=== PATIENT | female | born 1940 | race Caucasian/White ===

== ENCOUNTER 2021-05-03 20:00 | Inpatient (IN) | payer MEDICARE, OTHER ==
[2021-05-03 20:47] LABS: ALT (SGPT) 29 U/L (8-55); AST (SGOT) 64 U/L (5-34); Albumin 3.3 g/dL (3.4-4.8); Alkaline Phosphatase 57 U/L (40-110); Anion Gap 12 mmol/L (10-20); BUN (Urea Nitrogen) 18 mg/dL (9.8-20.1); Bilirubin, Total 0.4 mg/dL (0.2-1.2); Calc. Creatinine Clearance 58 mL/min (70-130); Calcium 8.7 mg/dL (7.8-10.44); Carbon Dioxide 28 mmol/L (23-31); Chloride 107 mmol/L (98-107); Globulin 2.6 g/dL (2.4-3.5); Glucose 164 mg/dL (83-110); Magnesium 1.9 mg/dL (1.6-2.6); Potassium 4.7 mmol/L (3.5-5.1); Protein, Total 5.9 g/dL (5.8-8.1); Sodium 142 mmol/L (136-145)
[2021-05-03 21:16] LABS: #Eosinphils 0.1 10x3/uL (0.0-0.5); #Monocytes 0.6 10x3/uL (0.0-1.1); #Neutrophils 6.7 10x3/uL (1.5-8.4); %Basophils 0.4 % (0.0-2.0); %Eosinophils 0.6 % (0.0-6.0); %Lymphocytes 21.9 % (18.0-47.0); %Monocytes 5.8 % (0.0-10.0); %Neutrophils 70.9 % (40.0-75.0); Hemoglobin 12.7 g/dL (12.0-15.5); Mean Corpuscular HGB CONC 30.9 g/dL (32.0-36.0); Mean Corpuscular Hemoglobin 29.1 pg (27.0-33.0); Mean Corpuscular Volume 94.1 fl (81.6-98.3); Platelet Count 96 10x3/uL (150-450); RBC Distribution Width 12.8 % (11.5-14.5); Red Blood Cell (RBC) Count 4.37 10x6/uL (3.90-5.03); White Blood Cell (WBC) Count 9.5 10x3/uL (3.5-10.5)
[2021-05-03] MEDS ORDERED: Sodium Chloride 0.9% 200 ML ONE (21:56)
[2021-05-03] MEDS ORDERED: Aspirin 325 mg Enteric Coated Tablet PO SCH (22:00)
[2021-05-03] MEDS ORDERED: Metoprolol Tartrate 25 MG TAB PO SCH (22:00)
[2021-05-03] MEDS ORDERED: cefTRIAXone\\ROCEPHIN 2 GM in Sodium Chloride 0.9% 100 ML IVPB SCH (22:00)
[2021-05-03] MEDS ORDERED: Enoxaparin Sodium 80 MG/0.8 ML SYRINGE SC SCH (22:00)
[2021-05-03] MEDS: Sodium Chloride 0.9% 1,000 ML IV SCH (22:01)
[2021-05-03] MEDS: Azithromycin 500 MG in Sodium Chloride 0.9% 250 ML 250 ML IVPB SCH (22:02)
[2021-05-03 22:10] LABS: ALT (SGPT) 29 U/L (8-55); AST (SGOT) 70 U/L (5-34); Albumin 3.2 g/dL (3.4-4.8); Alkaline Phosphatase 56 U/L (40-110); Anion Gap 11 mmol/L (10-20); BUN (Urea Nitrogen) 19 mg/dL (9.8-20.1); Bilirubin, Total 0.3 mg/dL (0.2-1.2); Calc. Creatinine Clearance 61 mL/min (70-130); Calcium 8.6 mg/dL (7.8-10.44); Carbon Dioxide 26 mmol/L (23-31); Chloride 107 mmol/L (98-107); Globulin 2.8 g/dL (2.4-3.5); Glucose 143 mg/dL (83-110); Magnesium 1.9 mg/dL (1.6-2.6); Potassium 4.4 mmol/L (3.5-5.1); Sodium 140 mmol/L (136-145)
[2021-05-03] MEDS ORDERED: Zolpidem Tartrate 5 MG TAB PO SCH (23:15)
[2021-05-04 01:19] LABS: Troponin I 3.589 ng/mL (< 0.028)
[2021-05-04] MEDS: Nitroglycerin 2% Ointment 1 INCH/1 GM Packet TOP SCH ×3 (01:49→17:08)
[2021-05-04] MEDS ORDERED: Loratadine 10 MG TAB PO PRN (03:14)
[2021-05-04] MEDS: Sodium Chloride 0.9% 1,000 ML IV SCH ×2 (05:36→12:25)
[2021-05-04 05:39] LABS: #Eosinphils 0.1 10x3/uL (0.0-0.5); #Monocytes 0.6 10x3/uL (0.0-1.1); #Neutrophils 5.5 10x3/uL (1.5-8.4); %Basophils 0.3 % (0.0-2.0); %Lymphocytes 28.9 % (18.0-47.0); %Monocytes 6.3 % (0.0-10.0); %Neutrophils 63.3 % (40.0-75.0); Hemoglobin 12.3 g/dL (12.0-15.5); Mean Corpuscular HGB CONC 31.6 g/dL (32.0-36.0); Mean Corpuscular Hemoglobin 29.4 pg (27.0-33.0); Mean Corpuscular Volume 93.1 fl (81.6-98.3); Mean Platelet Volume 11.8 fl (7.4-10.4); Platelet Count 99 10x3/uL (150-450); RBC Distribution Width 13.1 % (11.5-14.5); Red Blood Cell (RBC) Count 4.18 10x6/uL (3.90-5.03); White Blood Cell (WBC) Count 8.8 10x3/uL (3.5-10.5)
[2021-05-04 05:49] LABS: Anion Gap 12 mmol/L (10-20); BUN (Urea Nitrogen) 18 mg/dL (9.8-20.1); Calc. Creatinine Clearance 64 mL/min (70-130); Calcium 8.2 mg/dL (7.8-10.44); Carbon Dioxide 25 mmol/L (23-31); Chloride 110 mmol/L (98-107); Glucose 97 mg/dL (83-110); Potassium 4.4 mmol/L (3.5-5.1); Sodium 143 mmol/L (136-145)
[2021-05-04 06:15] LABS: Troponin I 3.589 ng/mL (< 0.028)
[2021-05-04] MEDS: Enoxaparin Sodium 80 MG/0.8 ML SYRINGE SC SCH ×2 (07:51→20:18)
[2021-05-04] MEDS: Multivit, Therapeutic 1 TAB PO SCH (07:51)
[2021-05-04] MEDS: Ascorbic Acid 500 mg Chewable Tablet PO SCH (07:51)
[2021-05-04] MEDS: Cholecalciferol 1,000 UNITS (25 MCG) TAB PO SCH (07:51)
[2021-05-04] MEDS: Aspirin 81 mg Enteric Coated Tablet PO SCH (07:52)
[2021-05-04] MEDS: Fish Oil 1,000 MG CAP PO SCH (07:52)
[2021-05-04] MEDS: Potassium Chloride 10 MEQ TAB PO SCH (07:52)
[2021-05-04] MEDS ORDERED: Venlafaxine HCl XR 75 MG CAP PO SCH (09:00)
[2021-05-04] MEDS ORDERED: Lisinopril 20 MG TAB PO SCH (09:00)
[2021-05-04] MEDS ORDERED: Rosuvastatin 20 MG TAB PO SCH (09:00)
[2021-05-04] MEDS ORDERED: Aspirin 81 mg Enteric Coated Tablet PO SCH (09:00)
[2021-05-04] MEDS ORDERED: Furosemide 40 MG TAB PO SCH (09:00)
[2021-05-04] MEDS ORDERED: BUPRENORPHINE TD SCH (09:00)
[2021-05-04] MEDS ORDERED: Metoprolol Tartrate 25 MG TAB PO SCH (09:00)
[2021-05-04] MEDS: Acetaminophen 325 MG TAB PO PRN (17:13)
[2021-05-04] MEDS: Gabapentin 300 MG CAP PO SCH (20:30)
[2021-05-04] MEDS ORDERED: Zolpidem Tartrate 5 MG TAB PO SCH (21:00)
[2021-05-04] MEDS ORDERED: Zolpidem Tartrate 5 MG TAB PO PRN (21:00)
[2021-05-04] MEDS ORDERED: Dexamethasone 10 MG in Sodium Chloride 0.9% 50 ML IVPB SCH (21:15)
[2021-05-04] MEDS ORDERED: Lorazepam 2 MG/ML VIAL ONE (22:00)
[2021-05-04 22:11] LABS: ALV-art Gradient -43.065 mmHg (0-20); Actual Bicarbonate (HCO3a) 17.5 mEq/L (22-28); Base Excess (BEa) -19.8 mEq/L (-2.0 to +3.0); CO2 Tension 120.9 mmHg (35.0-45.0); Calcium, Ionized (arterial) 1.22 mmol/L (1.12-1.30); Carboxyhemoglobin (COHb) 0.5 gm% (0.0-3.0); Hemoglobin (Hb) 14.1 g/dL (12.0-16.0); O2 Tension (PaO2), arterial 120.1 mmHg (> 70.0); Potassium - ABG Lab 4.2 mmol/L (3.70-5.30); Puncture Site RRA; pH, Arterial 6.78 (7.35-7.45)
[2021-05-04] MEDS ORDERED: Piperacillin/Tazobactam 3.375 GM in Sodium Chloride 0.9% 100 ML IVPB SCH (22:30)
[2021-05-04 22:49] LABS: Hemoglobin 13.9 g/dL (12.0-15.5); Mean Corpuscular HGB CONC 29.9 g/dL (32.0-36.0); Mean Corpuscular Hemoglobin 29.3 pg (27.0-33.0); Mean Corpuscular Volume 98.1 fl (81.6-98.3); Mean Platelet Volume 12.3 fl (7.4-10.4); Platelet Count 136 10x3/uL (150-450); RBC Distribution Width 12.8 % (11.5-14.5); Red Blood Cell (RBC) Count 4.74 10x6/uL (3.90-5.03); White Blood Cell (WBC) Count 23.7 10x3/uL (3.5-10.5)
[2021-05-04 22:53] LABS: ALT (SGPT) 48 U/L (8-55); AST (SGOT) 59 U/L (5-34); Albumin 3.5 g/dL (3.4-4.8); Alkaline Phosphatase 81 U/L (40-110); Anion Gap 20 mmol/L (10-20); BUN (Urea Nitrogen) 16 mg/dL (9.8-20.1); Bilirubin, Total 0.3 mg/dL (0.2-1.2); CK (CPK) 142 U/L (29-168); Calc. Creatinine Clearance 47 mL/min (70-130); Calcium 8.6 mg/dL (7.8-10.44); Carbon Dioxide 18 mmol/L (23-31); Chloride 108 mmol/L (98-107); Globulin 2.7 g/dL (2.4-3.5); Glucose 177 mg/dL (83-110); Protein, Total 6.2 g/dL (5.8-8.1); Sodium 142 mmol/L (136-145)
[2021-05-04] MEDS ORDERED: levETIRAcetam in NS 1,000 MG in Premix Bag 1 BAG IVPB SCH (23:00)
[2021-05-04 23:39] LABS: MDiff Complete? YES; Manual Diff?? YES
[2021-05-04 23:43] LABS: Band 1 % (5-11); Eosinophils 5 % (0-10); Lymphocytes 21 % (21-51); Monocytes 2 % (0-10); Neutrophil 52 % (42-75); Reactive Lymphocytes 18 % (0-10)
[2021-05-04 23:44] LABS: Platelet Morphology Comment Appears Adequate
[2021-05-04 23:45] LABS: Giant Platelets SLIGHT; Large Platelets SLIGHT
[2021-05-04 23:46] LABS: Crenated RBC SLIGHT = 1-5 cells (100X) (None Seen)
[2021-05-05] MEDS: Sodium Bicarbonate 75 MEQ, Admixture Fee 1 EACH in Dextrose 5% in Water 500 ML IV SCH ×2 (00:01→16:25)
[2021-05-05] MEDS ORDERED: Dexamethasone 10 MG in Sodium Chloride 0.9% 50 ML IVPB SCH ×2 (01:00→09:00)
[2021-05-05] MEDS ORDERED: Vasopressin 20 UNIT, Admixture Fee 1 EACH in Sodium Chloride 0.9% 50 ML IV SCH (01:00)
[2021-05-05 01:16] VITALS: TEMP 97.8
[2021-05-05 01:39] LABS: ALV-art Gradient 595.325 mmHg (0-20); Actual Bicarbonate (HCO3a) 17.3 mEq/L (22-28); Base Excess (BEa) -11.6 mEq/L (-2.0 to +3.0); CO2 Tension 51.5 mmHg (35.0-45.0); Calcium, Ionized (arterial) 1.13 mmol/L (1.12-1.30); Carboxyhemoglobin (COHb) 0.1 gm% (0.0-3.0); Hemoglobin (Hb) 13.6 g/dL (12.0-16.0); O2 Tension (PaO2), arterial 53.3 mmHg (> 70.0); Potassium - ABG Lab 4.5 mmol/L (3.70-5.30); Puncture Site RRA; pH, Arterial 7.15 (7.35-7.45)
[2021-05-05] MEDS ORDERED: levETIRAcetam in NS 1,000 MG in Premix Bag 1 BAG IVPB SCH (03:30)
[2021-05-05] MEDS: Nitroglycerin 2% Ointment 1 INCH/1 GM Packet TOP SCH ×2 (03:57→10:07)
[2021-05-05] MEDS: Azithromycin 500 MG in Sodium Chloride 0.9% 250 ML 250 ML IVPB SCH ×2 (03:57→23:32)
[2021-05-05] MEDS: Dexamethasone 4 mg/ml Vial SLOW IVP SCH ×2 (03:57→13:21)
[2021-05-05 03:59] LABS: CRP (Inflammatory) 7.41 mg/dL (= or < 0.5); Magnesium 1.6 mg/dL (1.6-2.6)
[2021-05-05] MEDS ORDERED: Piperacillin/Tazobactam 3.375 GM in Sodium Chloride 0.9% 100 ML IVPB SCH (04:00)
[2021-05-05 04:05] LABS: Troponin I 2.331 ng/mL (< 0.028)
[2021-05-05 04:16] LABS: ALT (SGPT) 74 U/L (8-55); AST (SGOT) 98 U/L (5-34); Albumin 2.9 g/dL (3.4-4.8); Alkaline Phosphatase 84 U/L (40-110); Anion Gap 14 mmol/L (10-20); BUN (Urea Nitrogen) 19 mg/dL (9.8-20.1); Bilirubin, Total 0.3 mg/dL (0.2-1.2); Calc. Creatinine Clearance 47 mL/min (70-130); Calcium 7.5 mg/dL (7.8-10.44); Carbon Dioxide 26 mmol/L (23-31); Chloride 107 mmol/L (98-107); Globulin 1.9 g/dL (2.4-3.5); Glucose 300 mg/dL (83-110); Potassium 3.8 mmol/L (3.5-5.1); Protein, Total 4.8 g/dL (5.8-8.1); Sodium 143 mmol/L (136-145)
[2021-05-05 04:32] LABS: Hemoglobin 12.1 g/dL (12.0-15.5); Mean Corpuscular HGB CONC 31.1 g/dL (32.0-36.0); Mean Corpuscular Hemoglobin 28.6 pg (27.0-33.0); Mean Platelet Volume 12.7 fl (7.4-10.4); Platelet Count 142 10x3/uL (150-450); RBC Distribution Width 12.8 % (11.5-14.5); Red Blood Cell (RBC) Count 4.23 10x6/uL (3.90-5.03); White Blood Cell (WBC) Count 19.8 10x3/uL (3.5-10.5)
[2021-05-05 04:48] LABS: MDiff Complete? YES
[2021-05-05 04:51] LABS: Band 3 % (5-11); Lymphocytes 15 % (21-51); Monocytes 9 % (0-10); Neutrophil 73 % (42-75)
[2021-05-05 04:53] LABS: Platelet Morphology Comment Appears Adequate; RBC Morphology Normal
[2021-05-05 05:05] LABS: ALV-art Gradient 311.025 mmHg (0-20); Actual Bicarbonate (HCO3a) 26.8 mEq/L (22-28); Base Excess (BEa) 1.7 mEq/L (-2.0 to +3.0); CO2 Tension 43.9 mmHg (35.0-45.0); Calcium, Ionized (arterial) 1.09 mmol/L (1.12-1.30); Carboxyhemoglobin (COHb) 0.4 gm% (0.0-3.0); Hemoglobin (Hb) 12.9 g/dL (12.0-16.0); O2 Tension (PaO2), arterial 61.9 mmHg (> 70.0); Potassium - ABG Lab 3.7 mmol/L (3.70-5.30); Puncture Site Arterial Line
[2021-05-05] MEDS ORDERED: levETIRAcetam 500 MG in Sodium Chloride 0.9% 100 ML IVPB SCH (09:00)
[2021-05-05] MEDS ORDERED: BARICITINIB 2 MG TAB PO SCH (09:15)
[2021-05-05] MEDS: Piperacillin/Tazobactam 3.375 GM in Sodium Chloride 0.9% 100 ML IVPB SCH ×2 (09:47→15:33)
[2021-05-05] MEDS: Cholecalciferol 1,000 UNITS (25 MCG) TAB PO SCH (09:52)
[2021-05-05] MEDS: Zinc Sulfate 220 MG CAP PO SCH (09:52)
[2021-05-05] MEDS: Ascorbic Acid 500 mg Chewable Tablet PO SCH (09:52)
[2021-05-05] MEDS: Aspirin 81 mg Enteric Coated Tablet PO SCH (09:53)
[2021-05-05] MEDS: Norepinephrine 8 MG/0.9% NS 250 ML IVPB PRN (09:53)
[2021-05-05] MEDS: Fish Oil 1,000 MG CAP PO SCH (09:54)
[2021-05-05] MEDS: Propofol 1,000 MG/100 ML VIAL IV PRN ×2 (09:58→16:05)
[2021-05-05] MEDS ORDERED: Dextrose 5% in Water 1,000 ML IV PRN (09:59)
[2021-05-05] MEDS ORDERED: Dextrose 50% Abboject 50 ML SYRINGE SLOW IVP PRN (09:59)
[2021-05-05] MEDS: Potassium Chloride 10 MEQ TAB PO SCH (10:04)
[2021-05-05] MEDS: Pantoprazole 40 MG VIAL IVP SCH (10:04)
[2021-05-05] MEDS: Multivit, Therapeutic 1 TAB PO SCH (10:08)
[2021-05-05] MEDS ORDERED: levETIRAcetam 500 MG/5 ML VIAL ONE (14:05)
[2021-05-05] MEDS: fentaNYL Citrate-0.9 % NaCl/PF 100 ML IVPB SCH (14:10)
[2021-05-05] MEDS: levETIRAcetam 500 MG in Sodium Chloride 0.9% 100 ML IVPB SCH (14:20)
[2021-05-05] MEDS: HumaLOG 300 UNITS/3 ML VIAL SC PRN (16:30)
[2021-05-05] MEDS: Gabapentin 300 MG CAP PO SCH (20:29)
[2021-05-06] MEDS: Sodium Bicarbonate 75 MEQ, Admixture Fee 1 EACH in Dextrose 5% in Water 500 ML IV SCH (00:14)
[2021-05-06] MEDS: Dexamethasone 4 mg/ml Vial SLOW IVP SCH ×2 (03:29→13:06)
[2021-05-06] MEDS: Piperacillin/Tazobactam 3.375 GM in Sodium Chloride 0.9% 100 ML IVPB SCH ×3 (03:29→15:46)
[2021-05-06] MEDS: levETIRAcetam 500 MG in Sodium Chloride 0.9% 100 ML IVPB SCH ×2 (03:29→15:58)
[2021-05-06 04:03] LABS: Actual Bicarbonate (HCO3a) 32.3 mEq/L (22-28); Base Excess (BEa) 9.3 mEq/L (-2.0 to +3.0); CO2 Tension 37.8 mmHg (35.0-45.0); Calcium, Ionized (arterial) 1.01 mmol/L (1.12-1.30); Carboxyhemoglobin (COHb) 0.3 gm% (0.0-3.0); Hemoglobin (Hb) 10.9 g/dL (12.0-16.0); Potassium - ABG Lab 3.4 mmol/L (3.70-5.30); Puncture Site Arterial Line; pH, Arterial 7.55 (7.35-7.45)
[2021-05-06 04:21] LABS: Hemoglobin 10.1 g/dL (12.0-15.5); Mean Corpuscular HGB CONC 32.5 g/dL (32.0-36.0); Mean Corpuscular Volume 89.4 fl (81.6-98.3); Mean Platelet Volume 12.3 fl (7.4-10.4); Platelet Count 150 10x3/uL (150-450); RBC Distribution Width 12.7 % (11.5-14.5); Red Blood Cell (RBC) Count 3.48 10x6/uL (3.90-5.03); White Blood Cell (WBC) Count 20.7 10x3/uL (3.5-10.5)
[2021-05-06 04:29] LABS: ALT (SGPT) 44 U/L (8-55); AST (SGOT) 35 U/L (5-34); Albumin 2.5 g/dL (3.4-4.8); Alkaline Phosphatase 61 U/L (40-110); Anion Gap 12 mmol/L (10-20); BUN (Urea Nitrogen) 18 mg/dL (9.8-20.1); Bilirubin, Direct 0.2 mg/dL (0.1-0.3); Bilirubin, Total 0.3 mg/dL (0.2-1.2); Calc. Creatinine Clearance 50 mL/min (70-130); Calcium 7.4 mg/dL (7.8-10.44); Carbon Dioxide 33 mmol/L (23-31); Chloride 100 mmol/L (98-107); Glucose 175 mg/dL (83-110); Potassium 3.3 mmol/L (3.5-5.1); Protein, Total 4.5 g/dL (5.8-8.1); Sodium 142 mmol/L (136-145)
[2021-05-06] MEDS: Norepinephrine 8 MG/0.9% NS 250 ML IVPB PRN (06:10)
[2021-05-06] MEDS ORDERED: Potassium Chloride 20 MEQ TAB PO SCH (06:15)
[2021-05-06 06:25] LABS: MDiff Complete? YES
[2021-05-06 06:27] LABS: Band 1 % (5-11); Lymphocytes 29 % (21-51); Monocytes 6 % (0-10); Neutrophil 61 % (42-75); Reactive Lymphocytes 3 % (0-10)
[2021-05-06 06:29] LABS: Platelet Morphology Comment Appears Adequate; RBC Morphology Normal
[2021-05-06] MEDS: Propofol 1,000 MG/100 ML VIAL IV PRN (07:44)
[2021-05-06] MEDS: fentaNYL Citrate-0.9 % NaCl/PF 100 ML IVPB SCH (07:47)
[2021-05-06] MEDS: Pantoprazole 40 MG VIAL IVP SCH (09:29)
[2021-05-06] MEDS: Acetaminophen 325 MG TAB PO PRN (09:29)
[2021-05-06] MEDS: BARICITINIB 2 MG TAB PO SCH (09:30)
[2021-05-06] MEDS: Cholecalciferol 1,000 UNITS (25 MCG) TAB PO SCH (09:30)
[2021-05-06] MEDS: Multivit, Therapeutic 1 TAB PO SCH (09:30)
[2021-05-06] MEDS: Zinc Sulfate 220 MG CAP PO SCH (09:30)
[2021-05-06] MEDS: Ascorbic Acid 500 mg Chewable Tablet PO SCH (09:31)
[2021-05-06] MEDS: Aspirin 81 mg Enteric Coated Tablet PO SCH (09:36)
[2021-05-06] MEDS ORDERED: Sodium Chloride 0.9% 100 ML ONE (16:00)
[2021-05-06] MEDS: Gabapentin 300 MG CAP PO SCH (21:37)
[2021-05-07] MEDS: Piperacillin/Tazobactam 3.375 GM in Sodium Chloride 0.9% 100 ML IVPB SCH ×4 (00:20→23:09)
[2021-05-07] MEDS: Propofol 1,000 MG/100 ML VIAL IV PRN ×4 (00:20→20:02)
[2021-05-07] MEDS: levETIRAcetam 500 MG in Sodium Chloride 0.9% 100 ML IVPB SCH ×2 (02:29→14:43)
[2021-05-07] MEDS: Dexamethasone 4 mg/ml Vial SLOW IVP SCH ×2 (02:29→14:41)
[2021-05-07 04:12] LABS: Mean Corpuscular HGB CONC 31.6 g/dL (32.0-36.0); Mean Corpuscular Hemoglobin 28.8 pg (27.0-33.0); Mean Corpuscular Volume 91.3 fl (81.6-98.3); Mean Platelet Volume 11.5 fl (7.4-10.4); Platelet Count 179 10x3/uL (150-450); RBC Distribution Width 12.9 % (11.5-14.5); Red Blood Cell (RBC) Count 3.12 10x6/uL (3.90-5.03); White Blood Cell (WBC) Count 28.1 10x3/uL (3.5-10.5)
[2021-05-07 04:30] LABS: ALT (SGPT) 39 U/L (8-55); AST (SGOT) 32 U/L (5-34); Albumin 2.5 g/dL (3.4-4.8); Alkaline Phosphatase 55 U/L (40-110); Anion Gap 15 mmol/L (10-20); BUN (Urea Nitrogen) 28 mg/dL (9.8-20.1); Bilirubin, Total 0.3 mg/dL (0.2-1.2); Calc. Creatinine Clearance 62 mL/min (70-130); Calcium 7.5 mg/dL (7.8-10.44); Carbon Dioxide 30 mmol/L (23-31); Chloride 102 mmol/L (98-107); Globulin 2.1 g/dL (2.4-3.5); Glucose 115 mg/dL (83-110); Protein, Total 4.6 g/dL (5.8-8.1); Sodium 143 mmol/L (136-145)
[2021-05-07 05:08] LABS: MDiff Complete? YES
[2021-05-07 05:11] LABS: Lymphocytes 31 % (21-51); Monocytes 5 % (0-10); Neutrophil 56 % (42-75); Reactive Lymphocytes 8 % (0-10)
[2021-05-07 05:12] LABS: Platelet Morphology Comment Appears Adequate; RBC Morphology Normal
[2021-05-07 06:20] LABS: D-Dimer Test 3.17 mg/L FEU (0.19-0.50); PTT 24.7 sec (22.0-33.0); Prothrombin Time 11.3 sec (9.5-12.1)
[2021-05-07] MEDS: Aspirin Chewable 81 MG TAB PO SCH (09:44)
[2021-05-07] MEDS: Ascorbic Acid 500 mg Chewable Tablet PO SCH (09:44)
[2021-05-07] MEDS: Pantoprazole 40 MG VIAL IVP SCH (09:45)
[2021-05-07] MEDS: Zinc Sulfate 220 MG CAP PO SCH (09:45)
[2021-05-07] MEDS: Multivit, Therapeutic 1 TAB PO SCH (09:45)
[2021-05-07] MEDS: BARICITINIB 2 MG TAB PO SCH (09:45)
[2021-05-07] MEDS: Cholecalciferol 1,000 UNITS (25 MCG) TAB PO SCH (09:45)
[2021-05-07] MEDS: fentaNYL Citrate-0.9 % NaCl/PF 100 ML IVPB SCH (10:24)
[2021-05-07 10:31] LABS: ALV-art Gradient 407.075 mmHg (0-20); Actual Bicarbonate (HCO3a) 26.1 mEq/L (22-28); Base Excess (BEa) 3.6 mEq/L (-2.0 to +3.0); CO2 Tension 30.9 mmHg (35.0-45.0); Calcium, Ionized (arterial) 0.93 mmol/L (1.12-1.30); Carboxyhemoglobin (COHb) 0.1 gm% (0.0-3.0); Hemoglobin (Hb) 7.9 g/dL (12.0-16.0); O2 Tension (PaO2), arterial 53.4 mmHg (> 70.0); Puncture Site Arterial Line; pH, Arterial 7.55 (7.35-7.45)
[2021-05-07] MEDS: Norepinephrine 8 MG/0.9% NS 250 ML IVPB PRN (14:43)
[2021-05-07] MEDS: Gabapentin 300 MG CAP PO SCH (20:02)
[2021-05-07] MEDS: HumaLOG 300 UNITS/3 ML VIAL SC PRN (20:17)
[2021-05-08] MEDS: Dexamethasone 4 mg/ml Vial SLOW IVP SCH ×2 (02:39→14:34)
[2021-05-08] MEDS: levETIRAcetam 500 MG in Sodium Chloride 0.9% 100 ML IVPB SCH ×2 (02:39→14:35)
[2021-05-08] MEDS: Propofol 1,000 MG/100 ML VIAL IV PRN ×4 (02:39→22:08)
[2021-05-08 04:30] LABS: Base Excess (BEa) 6.4 mEq/L (-2.0 to +3.0); CO2 Tension 39.5 mmHg (35.0-45.0); Calcium, Ionized (arterial) 1.03 mmol/L (1.12-1.30); Carboxyhemoglobin (COHb) 0.3 gm% (0.0-3.0); Hemoglobin (Hb) 10.1 g/dL (12.0-16.0); O2 Tension (PaO2), arterial 104.8 mmHg (> 70.0); Potassium - ABG Lab 3.6 mmol/L (3.70-5.30); Puncture Site Arterial Line
[2021-05-08 04:31] LABS: Hemoglobin 8.8 g/dL (12.0-15.5); Mean Corpuscular HGB CONC 31.2 g/dL (32.0-36.0); Mean Corpuscular Hemoglobin 28.9 pg (27.0-33.0); Mean Corpuscular Volume 92.5 fl (81.6-98.3); Mean Platelet Volume 11.3 fl (7.4-10.4); Platelet Count 235 10x3/uL (150-450); Red Blood Cell (RBC) Count 3.05 10x6/uL (3.90-5.03); White Blood Cell (WBC) Count 36.6 10x3/uL (3.5-10.5)
[2021-05-08 04:34] LABS: ALV-art Gradient 273.625 mmHg (0-20)
[2021-05-08 04:44] LABS: ALT (SGPT) 37 U/L (8-55); AST (SGOT) 24 U/L (5-34); Albumin 2.7 g/dL (3.4-4.8); Alkaline Phosphatase 59 U/L (40-110); Anion Gap 15 mmol/L (10-20); BUN (Urea Nitrogen) 42 mg/dL (9.8-20.1); Bilirubin, Total 0.3 mg/dL (0.2-1.2); Calc. Creatinine Clearance 55 mL/min (70-130); Calcium 7.5 mg/dL (7.8-10.44); Carbon Dioxide 29 mmol/L (23-31); Chloride 103 mmol/L (98-107); Globulin 1.9 g/dL (2.4-3.5); Glucose 170 mg/dL (83-110); Potassium 3.8 mmol/L (3.5-5.1); Protein, Total 4.6 g/dL (5.8-8.1); Sodium 143 mmol/L (136-145)
[2021-05-08 04:59] LABS: MDiff Complete? YES
[2021-05-08 05:03] LABS: Band 1 % (5-11); Lymphocytes 29 % (21-51); Metamyelocyte 1 % (0-0); Monocytes 4 % (0-10); Neutrophil 42 % (42-75); Reactive Lymphocytes 23 % (0-10)
[2021-05-08 05:05] LABS: Platelet Morphology Comment Appears Adequate; RBC Morphology Normal
[2021-05-08] MEDS: Piperacillin/Tazobactam 3.375 GM in Sodium Chloride 0.9% 100 ML IVPB SCH ×3 (08:00→22:07)
[2021-05-08] MEDS: Ascorbic Acid 500 mg Chewable Tablet PO SCH (08:01)
[2021-05-08] MEDS: Zinc Sulfate 220 MG CAP PO SCH (08:02)
[2021-05-08] MEDS: Multivit, Therapeutic 1 TAB PO SCH (08:02)
[2021-05-08] MEDS: Aspirin Chewable 81 MG TAB PO SCH (08:02)
[2021-05-08] MEDS: BARICITINIB 2 MG TAB PO SCH (08:02)
[2021-05-08] MEDS: Cholecalciferol 1,000 UNITS (25 MCG) TAB PO SCH (08:02)
[2021-05-08] MEDS: Pantoprazole 40 MG VIAL IVP SCH ×2 (08:03→20:19)
[2021-05-08 10:48] LABS: D-Dimer Test 3.97 mg/L FEU (0.19-0.50); PTT 22.1 sec (22.0-33.0); Prothrombin Time 11.4 sec (9.5-12.1)
[2021-05-08] MEDS ORDERED: VANCOMYCIN 1.25 GM/250 ML BAG 1.25 GM in Premix Bag 1 BAG IVPB SCH (11:00)
[2021-05-08] MEDS: fentaNYL Citrate-0.9 % NaCl/PF 100 ML IVPB SCH (11:17)
[2021-05-08 11:51] VITALS: BMI 35.6
[2021-05-08] MEDS: HumaLOG 300 UNITS/3 ML VIAL SC PRN ×2 (11:56→15:56)
[2021-05-08] MEDS: Gabapentin 300 MG CAP PO SCH (19:43)
[2021-05-09 03:29] LABS: Actual Bicarbonate (HCO3a) 30.1 mEq/L (22-28); Base Excess (BEa) 5.3 mEq/L (-2.0 to +3.0); CO2 Tension 45.6 mmHg (35.0-45.0); Calcium, Ionized (arterial) 1.08 mmol/L (1.12-1.30); Carboxyhemoglobin (COHb) 0.3 gm% (0.0-3.0); Hemoglobin (Hb) 9.3 g/dL (12.0-16.0); O2 Tension (PaO2), arterial 70.2 mmHg (> 70.0); Potassium - ABG Lab 3.8 mmol/L (3.70-5.30); Puncture Site Arterial Line; pH, Arterial 7.44 (7.35-7.45)
[2021-05-09 03:35] LABS: Hemoglobin 8.7 g/dL (12.0-15.5); Mean Corpuscular Hemoglobin 28.6 pg (27.0-33.0); Mean Corpuscular Volume 92.4 fl (81.6-98.3); Mean Platelet Volume 11.2 fl (7.4-10.4); Platelet Count 250 10x3/uL (150-450); RBC Distribution Width 13.2 % (11.5-14.5); Red Blood Cell (RBC) Count 3.04 10x6/uL (3.90-5.03); White Blood Cell (WBC) Count 35.8 10x3/uL (3.5-10.5)
[2021-05-09 03:48] LABS: MDiff Complete? YES
[2021-05-09] MEDS: Dexamethasone 4 mg/ml Vial SLOW IVP SCH ×2 (03:52→14:43)
[2021-05-09 03:53] LABS: ALT (SGPT) 34 U/L (8-55); AST (SGOT) 25 U/L (5-34); Albumin 2.6 g/dL (3.4-4.8); Alkaline Phosphatase 52 U/L (40-110); Anion Gap 13 mmol/L (10-20); BUN (Urea Nitrogen) 45 mg/dL (9.8-20.1); Bilirubin, Direct 0.2 mg/dL (0.1-0.3); Bilirubin, Total 0.3 mg/dL (0.2-1.2); Calc. Creatinine Clearance 68 mL/min (70-130); Calcium 7.6 mg/dL (7.8-10.44); Carbon Dioxide 30 mmol/L (23-31); Chloride 104 mmol/L (98-107); Globulin 2.1 g/dL (2.4-3.5); Glucose 147 mg/dL (83-110); Potassium 3.9 mmol/L (3.5-5.1); Protein, Total 4.7 g/dL (5.8-8.1); Sodium 143 mmol/L (136-145)
[2021-05-09] MEDS: levETIRAcetam 500 MG in Sodium Chloride 0.9% 100 ML IVPB SCH ×2 (03:53→14:44)
[2021-05-09] MEDS: Propofol 1,000 MG/100 ML VIAL IV PRN ×4 (03:53→22:56)
[2021-05-09 04:29] LABS: Eosinophils 1 % (0-10); Lymphocytes 41 % (21-51); Monocytes 5 % (0-10); Neutrophil 40 % (42-75); Reactive Lymphocytes 13 % (0-10)
[2021-05-09] MEDS: Piperacillin/Tazobactam 3.375 GM in Sodium Chloride 0.9% 100 ML IVPB SCH ×3 (08:16→22:58)
[2021-05-09] MEDS: BARICITINIB 2 MG TAB PO SCH (08:19)
[2021-05-09] MEDS: Cholecalciferol 1,000 UNITS (25 MCG) TAB PO SCH (08:19)
[2021-05-09] MEDS: Ascorbic Acid 500 mg Chewable Tablet PO SCH (08:19)
[2021-05-09] MEDS: Pantoprazole 40 MG VIAL IVP SCH (08:20)
[2021-05-09] MEDS: Zinc Sulfate 220 MG CAP PO SCH (08:20)
[2021-05-09] MEDS: Multivit, Therapeutic 1 TAB PO SCH (08:20)
[2021-05-09] MEDS ORDERED: Enoxaparin Sodium 40 MG/0.4 ML SYRINGE SC SCH (09:00)
[2021-05-09] MEDS ORDERED: Vancomycin HCl 1 GM in Sodium Chloride 0.9% 250 ML 250 ML IVPB SCH (11:00)
[2021-05-09] MEDS: fentaNYL Citrate-0.9 % NaCl/PF 100 ML IVPB SCH (13:14)
[2021-05-09] MEDS: Gabapentin 300 MG CAP PO SCH (21:48)
[2021-05-10] MEDS: Dexamethasone 4 mg/ml Vial SLOW IVP SCH ×2 (02:50→13:55)
[2021-05-10] MEDS: levETIRAcetam 500 MG in Sodium Chloride 0.9% 100 ML IVPB SCH ×2 (02:50→14:01)
[2021-05-10 04:08] LABS: Actual Bicarbonate (HCO3a) 27.8 mEq/L (22-28); Base Excess (BEa) 5.1 mEq/L (-2.0 to +3.0); CO2 Tension 33.2 mmHg (35.0-45.0); Calcium, Ionized (arterial) 1.07 mmol/L (1.12-1.30); Carboxyhemoglobin (COHb) 0.3 gm% (0.0-3.0); Hemoglobin (Hb) 8.5 g/dL (12.0-16.0); O2 Tension (PaO2), arterial 58.9 mmHg (> 70.0); Potassium - ABG Lab 3.7 mmol/L (3.70-5.30); Puncture Site Arterial Line; pH, Arterial 7.54 (7.35-7.45)
[2021-05-10 04:31] LABS: Hemoglobin 9.1 g/dL (12.0-15.5); Lactic Acid 1.7 mmol/L (0.5-2.2); Mean Corpuscular HGB CONC 32.9 g/dL (32.0-36.0); Mean Corpuscular Hemoglobin 29.6 pg (27.0-33.0); Mean Corpuscular Volume 90.2 fl (81.6-98.3); Mean Platelet Volume 11.2 fl (7.4-10.4); Platelet Count 292 10x3/uL (150-450); RBC Distribution Width 13.2 % (11.5-14.5); Red Blood Cell (RBC) Count 3.07 10x6/uL (3.90-5.03)
[2021-05-10 04:35] LABS: ALT (SGPT) 38 U/L (8-55); AST (SGOT) 25 U/L (5-34); Albumin 2.7 g/dL (3.4-4.8); Alkaline Phosphatase 49 U/L (40-110); Anion Gap 15 mmol/L (10-20); BUN (Urea Nitrogen) 43 mg/dL (9.8-20.1); Bilirubin, Total 0.5 mg/dL (0.2-1.2); Calc. Creatinine Clearance 73 mL/min (70-130); Calcium 7.8 mg/dL (7.8-10.44); Carbon Dioxide 26 mmol/L (23-31); Chloride 106 mmol/L (98-107); Globulin 2.1 g/dL (2.4-3.5); Glucose 104 mg/dL (83-110); Magnesium 2.2 mg/dL (1.6-2.6); Phosphorus 4.2 mg/dL (2.3-4.7); Potassium 3.9 mmol/L (3.5-5.1); Protein, Total 4.8 g/dL (5.8-8.1); Sodium 143 mmol/L (136-145)
[2021-05-10 04:46] LABS: Vancomycin, Trough 10.7 ug/mL
[2021-05-10 04:49] LABS: MDiff Complete? YES
[2021-05-10 04:54] VITALS: BP 140/55
[2021-05-10] MEDS: Propofol 1,000 MG/100 ML VIAL IV PRN ×3 (04:59→15:01)
[2021-05-10] MEDS: Norepinephrine 8 MG/0.9% NS 250 ML IVPB PRN (05:00)
[2021-05-10 05:32] LABS: Band 1 % (5-11); Lymphocytes 18 % (21-51); Metamyelocyte 1 % (0-0); Monocytes 1 % (0-10); Myelocyte 2 % (0-0); Neutrophil 45 % (42-75); Reactive Lymphocytes 32 % (0-10)
[2021-05-10 05:34] LABS: Platelet Morphology Comment Appears Adequate; Reflex for Review?? YES; Small Platelets MODERATE
[2021-05-10] MEDS ORDERED: Pantoprazole 40 MG VIAL IVP SCH (09:00)
[2021-05-10] MEDS: Piperacillin/Tazobactam 3.375 GM in Sodium Chloride 0.9% 100 ML IVPB SCH (09:13)
[2021-05-10] MEDS: Ascorbic Acid 500 mg Chewable Tablet PO SCH (09:14)
[2021-05-10] MEDS: Cholecalciferol 1,000 UNITS (25 MCG) TAB PO SCH (09:15)
[2021-05-10] MEDS: Multivit, Therapeutic 1 TAB PO SCH (09:15)
[2021-05-10] MEDS: Zinc Sulfate 220 MG CAP PO SCH (09:16)
[2021-05-10] MEDS ORDERED: Vancomycin HCl 1 GM in Sodium Chloride 0.9% 250 ML 250 ML IVPB SCH (11:00)
[2021-05-10] MEDS ORDERED: Micafungin 100 MG in Sodium Chloride 0.9% 100 ML IVPB SCH (12:00)
[2021-05-10] MEDS ORDERED: BARICITINIB 2 MG TAB PO SCH ×2 (15:00)
== END 2021-05-10 14:58 | disposition hospice, inpatient (51) | DRG 870 ==
LOC: CSHTELE 20:00 → CSHIMCU 05-04 22:19
PROVIDERS: ADMIT Family Medicine; ATTEND Family Medicine
PROC: 8E0ZXY6 Isolation (ICD-10-PCS; 2021-05-03)
PROC: 5A12012 Performance of Cardiac Output, Single, Manual (ICD-10-PCS; 2021-05-04)
PROC: 5A1955Z Respiratory Ventilation, Greater than 96 Consecutive Hours (ICD-10-PCS; 2021-05-04)
PROC: 0BH17EZ Insertion of Endotracheal Airway into Trachea, Via Natural or Artificial Opening (ICD-10-PCS; 2021-05-04)
PROC: 3E033XZ Introduction of Vasopressor into Peripheral Vein, Percutaneous Approach (ICD-10-PCS; 2021-05-04)
PROC: 06HY33Z Insertion of Infusion Device into Lower Vein, Percutaneous Approach (ICD-10-PCS; principal; 2021-05-05)
PROC: 0W9930Z Drainage of Right Pleural Cavity with Drainage Device, Percutaneous Approach (ICD-10-PCS; 2021-05-05)
PROC: XW0DXM6 Introduction of Baricitinib into Mouth and Pharynx, External Approach, New Technology Group 6 (ICD-10-PCS; 2021-05-06)
DX: A41.9 Sepsis, unspecified organism (principal); U07.1 COVID-19; G93.41 Metabolic encephalopathy; Z78.1 Physical restraint status; J12.82 Pneumonia due to coronavirus disease 2019; J96.01 Acute respiratory failure with hypoxia; I21.A1 Myocardial infarction type 2; J93.0 Spontaneous tension pneumothorax; J96.02 Acute respiratory failure with hypercapnia; I46.8 Cardiac arrest due to other underlying condition; J15.9 Unspecified bacterial pneumonia; K63.1 Perforation of intestine (nontraumatic); K55.029 Acute infarction of small intestine, extent unspecified; T79.7XXA Traumatic subcutaneous emphysema, initial encounter; R57.9 Shock, unspecified; I50.30 Unspecified diastolic (congestive) heart failure; Z66 Do not resuscitate; D69.6 Thrombocytopenia, unspecified; I11.0 Hypertensive heart disease with heart failure; I27.20 Pulmonary hypertension, unspecified; D64.9 Anemia, unspecified; I07.1 Rheumatic tricuspid insufficiency; E78.5 Hyperlipidemia, unspecified; Z95.0 Presence of cardiac pacemaker; Z90.710 Acquired absence of both cervix and uterus
CPT/HCPCS: 31500; 36415; 36416; 36600; 70450; 71045; 71250; 74018; 74177; 76705; 80048; 80053; 80076; 80202; 82248; 82274; 82550; 82553; 82805; 83605; 83735; 83880; 84100; 84146; 84484; 85025; 85049; 85060; 85300; 85362; 85379; 85384; 85610; 85730; 86140; 87040; 87070; 87081; 87205; 89220; 93005; 93010; 93306; 94002; 94003; 94760; C9113; J0456; J0696; J1100; J1650; J1815; J1953; J2060; J2248; J2543; J2704; J3370; J3490; J7050; J7070

== ENCOUNTER 2021-05-10 15:02 | Inpatient (IN) | payer OTHER ==
[2021-05-10] MEDS ORDERED: Glycopyrrolate 0.4 MG/ 2 ML VIAL SLOW IVP PRN (16:10)
[2021-05-10] MEDS ORDERED: Milk Of Magnesia 30 ML UDCUP PO PRN (16:15)
[2021-05-10] MEDS ORDERED: Scopolamine 1.5 mg/72 hour Patch TOP PRN (16:15)
[2021-05-10] MEDS ORDERED: Zolpidem Tartrate 5 MG TAB PO PRN (16:15)
[2021-05-10] MEDS ORDERED: Promethazine HCl 25 MG SUPP PR PRN (16:15)
[2021-05-10] MEDS ORDERED: Ondansetron ODT 4 MG TAB PO PRN (16:15)
[2021-05-10] MEDS ORDERED: Senokot 8.6 MG TAB PO PRN (16:15)
[2021-05-10] MEDS ORDERED: Haloperidol Lactate 5 MG/ML VIAL SLOW IVP PRN (16:15)
[2021-05-10] MEDS ORDERED: Morphine 10 MG/0.5 ML ORAL SYRINGE SL PRN (16:15)
[2021-05-10] MEDS ORDERED: Hyoscyamine Sulfate SL 0.125 mg Tablet SL PRN (16:15)
[2021-05-10] MEDS ORDERED: Ondansetron PF 4 MG/2 ML Vial IVP PRN (16:15)
[2021-05-10] MEDS ORDERED: Acetaminophen 650 MG Suppository PR PRN (16:15)
[2021-05-10] MEDS ORDERED: Loperamide HCl 2 MG CAP PO PRN (16:15)
[2021-05-10] MEDS: Morphine 4 MG/ML VIAL SLOW IVP PRN ×3 (16:39→17:49)
[2021-05-10] MEDS: Lorazepam 2 MG/ML VIAL SLOW IVP PRN ×3 (16:45→17:49)
== END 2021-05-10 23:05 | disposition expired | DRG 951 ==
LOC: CSHIMCU 15:02
PROVIDERS: ADMIT Family Medicine; ATTEND Family Medicine
DX: Z51.5 Encounter for palliative care (principal); A41.89 Other specified sepsis; U07.1 COVID-19; J12.82 Pneumonia due to coronavirus disease 2019; I21.4 Non-ST elevation (NSTEMI) myocardial infarction; G93.41 Metabolic encephalopathy; J96.01 Acute respiratory failure with hypoxia; J96.02 Acute respiratory failure with hypercapnia; D69.6 Thrombocytopenia, unspecified; E78.5 Hyperlipidemia, unspecified
CPT/HCPCS: J2060; J2270